=== PATIENT | male | born 2000 | race Two or more races ===

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

== ENCOUNTER 2023-02-08 01:19 | Emergency (ER) | payer OTHER ==
[~2023-02-08] VITALS: Ht 177.8 cm; Wt 83.9 kg
[2023-02-08 01:50] VITALS: TEMP 98.2
[2023-02-08] MEDS ORDERED: predniSONE 10 MG TABLET PO ONE (02:00)
[2023-02-08] MEDS ORDERED: FAMOTIDINE (20 MG) 20 MG TABLET PO ONE (02:00)
[2023-02-08] MEDS ORDERED: EPINEPHRINE (1:1000) 1 MG/ML AMPUL IM ONE (02:00)
[2023-02-08] MEDS ORDERED: EPINEPHRINE (1:1000) 1 MG/ML AMPUL ONE (02:04)
[2023-02-08] MEDS ORDERED: predniSONE 20 MG TABLET ONE (02:04)
[2023-02-08] MEDS ORDERED: FAMOTIDINE (20 MG) 20 MG TABLET ONE (02:05)
[2023-02-08] MEDS ORDERED: EPIN0.3P3 IM (04:21)
[2023-02-08] MEDS ORDERED: PRED20TA PO (04:21)
[2023-02-08 04:33] VITALS: BP 125/76; O2SAT 100
== END 2023-02-08 04:33 | disposition home or self-care (01) ==
LOC: ER 01:23
DX: L29.9 Pruritus, unspecified (principal); T78.1XXA Other adverse food reactions, not elsewhere classified, initial encounter; Z88.8 Allergy status to other drugs, medicaments and biological substances; X58.XXXA Exposure to other specified factors, initial encounter
CPT/HCPCS: 99283; 96372; J0171; J7512